=== PATIENT | male | born 1950 | race Caucasian/White ===

== ENCOUNTER 2018-07-08 10:39 | Emergency (ER) | payer MEDICARE, OTHER ==
--- NOTE | 2018-07-08 10:40 | NUR ---
See downtime notes
== END 2018-07-08 12:40 | disposition home or self-care (01) ==
LOC: SED 10:39
DX: R53.1 Weakness (principal); R05 Cough
CPT/HCPCS: 99283

== ENCOUNTER 2019-03-12 17:23 | Emergency (ER) | payer MEDICARE, OTHER ==
[~2019-03-12] VITALS: Ht 188 cm; Wt 90.7 kg
[2019-03-12 17:43] VITALS: BP_SYST 124
[2019-03-12] MEDS ORDERED: NACL 0.9% 1,000 ML IV ONE ×2 (17:45→18:30)
--- NOTE | 2019-03-12 17:45 | NUR ---
ER at bedside examining patient.
--- NOTE | 2019-03-12 17:47 | NUR ---
Patient transported to radiology via gurney, accompanied by CT staff.
--- NOTE | 2019-03-12 17:48 | NUR ---
pt arrives from [facility]. [facility]. BLS was initially called for lift assist. The pt became altered at this time. Pt is AAOX2. Pt reports hx of seizures and is on anti seizure meds.
--- NOTE | 2019-03-12 17:50 | NUR ---
pt arrives w/ at 20g IV to the left hand. IV is patent and infusing well.
--- NOTE | 2019-03-12 17:55 | NUR ---
NS 1L bolus currently infusing
--- NOTE | 2019-03-12 18:07 | NUR ---
Dr. Howe speaking [facility] [place] for CVA transfer.
--- NOTE | 2019-03-12 18:12 | NUR ---
accu check done 442.
[2019-03-12 18:15] LABS: HEMATOCRIT 45.7 % (36-54); HEMOGLOBIN 15.4 g/dL (14.0-18.0); MEAN CORPUSCULAR HEMOGLOBIN 35 pg (27-31); MEAN CORPUSCULAR HGB CONC 34 % (32-36); MEAN CORPUSCULAR VOLUME 102 fL (79.0-98.0); RED BLOOD CELL COUNT(AUTO) 4.46 MIL/uL (4.2-6.2); RED CELL DISTRIBUTION WIDTH 13.5 % (9.0-15.0); WHITE BLOOD COUNT (AUTO) 11.8 K/uL (4.8-10.8)
[2019-03-12 18:34] LABS: ANION GAP 8 (5-15); CALCIUM 8.6 mg/dL (8.4-11.0); CHLORIDE 96 mmol/L (98-107); CREATININE 1.14 mg/dL (0.55-1.30); POTASSIUM 3.3 mmol/L (3.5-5.1); SODIUM SERUM 131 mmol/L (136-145); UREA NITROGEN, BLOOD 21 mg/dL (8-21)
[2019-03-12 18:36] LABS: PLATELET COUNT (AUTO) 164 K/uL (130-430)
[2019-03-12 18:37] LABS: BAND % (MANUAL) 6 % (0-6); BASOPHILS % (MANUAL) 0 % (0-2); EOSINOPHILS % (MANUAL) 1 % (0-7); GFR AFRICAN AMERICAN 82 mL/min (>90); GLUCOSE 417 mg/dL (70-99); LYMPHOCYTES % (MANUAL) 17 % (20-46); MONOCYTES % (MANUAL) 15 % (0-11)
[2019-03-12 18:40] LABS: ALANINE AMINOTRANSFERASE 33 U/L (12-78); ALBUMIN 2.9 g/dL (3.4-4.8); ASPARTATE AMINOTRANSFERASE 20 U/L (10-37); TOTAL BILIRUBIN 0.4 mg/dL (0.0-1.0)
[2019-03-12 18:42] LABS: ACETAMINOPHEN < 1 ug/mL (1-30); ALCOHOL, BLOOD < 3 mg/dL (<10)
--- NOTE | 2019-03-12 18:45 | NUR ---
Swallow eval done at the bedside. Pt is able to swallow liquids w/ out any difficulty. Pt was able to swallow jello w/out difficulty. No coughing observed.
--- NOTE | 2019-03-12 19:05 | NUR ---
Second NS 1l infusing.
[2019-03-12] MEDS ORDERED: INSULIN REGULAR, HUMAN 10 UNITS/0.1 ML INJ IVP ONE (19:15)
--- NOTE | 2019-03-12 19:15 | NUR ---
Report given to Silvano TAPIA. Pt is in stable condition. Family is at the bedside.
[2019-03-12 19:28] LABS: BARBITURATE, URINE NEGATIVE (NEG <=200); BENZODIAZEPINE, URINE NEGATIVE (NEG <=150); CANNABINOID, URINE NEGATIVE (NEG <=50); COCAINE, URINE NEGATIVE (NEG <=150); METHAMPHETAMINES SCREEN,URINE NEGATIVE (NEG <=500); OPIATE, URINE NEGATIVE (NEG <=100); PHENCYCLIDINE SCREEN,URINE NEGATIVE (NEG <=25); URINE AMPHETAMINE NEGATIVE (NEG <=500); URINE METHADONE NEGATIVE (NEG <=200); URINE OXYCODONE SCREEN NEGATIVE (NEG <=100); URINE PROPOXYPHENE SCREEN NEGATIVE (NEG <=300)
[2019-03-12 19:29] LABS: UR TRICYCLIC ANTIDEPRESSANTS NEGATIVE (NEG <=300)
--- NOTE | 2019-03-12 20:18 | NUR ---
ER at bedside examining patient.
--- NOTE | 2019-03-12 20:24 | NUR ---
current blood sugar is 277. Dr. Lizarraga made aware.
[2019-03-12 20:39] VITALS: BP_SYST 126
--- NOTE | 2019-03-12 20:39 | NUR ---
Patient given written and verbal discharge instructions and verbalizes understanding. ER MD discussed with patient the results and treatment provided. Patient in stable condition. ID arm band removed. IV catheter removed intact and dressing applied, no active bleeding. No Rx given. Patient educated on pain management and to follow up with PMD. Pain Scale 0. Opportunity for questions provided and answered. Medication side effect fact sheet provided.
== END 2019-03-12 20:39 | disposition home or self-care (01) ==
LOC: SED 17:23
DX: E11.65 Type 2 diabetes mellitus with hyperglycemia (principal); R41.82 Altered mental status, unspecified
CPT/HCPCS: 36415; 70450; 80053; 80307; 81002; 82962; 85007; 85027; 93005; 96374; 99284; G0480; G0481; G0482; J1815; J7030